=== PATIENT | male | born 1945 | race Caucasian/White ===

== ENCOUNTER 2018-09-16 21:13 | Inpatient (IN) ==
[2018-09-16] MEDS ORDERED: DILTIAZEM 50 MG/10 ML VIAL IV STA (21:47)
[2018-09-16] MEDS ORDERED: SODIUM CHLORIDE 0.9% 500 ML IV STA (21:48)
[2018-09-16] MEDS ORDERED: DILTIAZEM 25 MG/5 ML VIAL IV ONE (21:49)
[2018-09-16] MEDS ORDERED: dilTIAZem Drip 125 MG/125 ML PREMIX IV ONE (22:12)
[2018-09-16] MEDS ORDERED: dilTIAZem Drip 125 MG/125 ML PREMIX IV SCH (22:30)
[2018-09-16 22:43] LABS: Basophils % 0.3 % (0.0-0.8); Hemoglobin 10.2 GM/DL (14.0-18.0); Immature Granulocytes % 1.4 %; Immature Granulocytes Absolute 0.14 #; Lymphocytes # 0.5 10*3/uL (1.4-4.0); Lymphocytes % 5.5 % (21.2-54.2); Mean Corpuscular HGB Conc 31.9 GM/DL (32-36); Mean Corpuscular Hemoglobin 30 PG (27-34); Mean Platelet Volume 10.3 FL (9.6-12.0); Monocytes # 0.4 10*3/uL (0.11-0.8); Monocytes % 4.5 % (1.7-12.7); Neutrophils # 8.6 10*3/uL (1.4-7.4); Neutrophils % 88.3 % (38.7-73.9); Platelet Count 145 T/CUMM (130-400); Red Blood Count 3.37 MC/CUMM (3.8-5.5); Red Cell Distribution Width 15.7 % (9.3-17.3); White Blood Count 9.8 T/CUMM (4-12)
[2018-09-16 22:50] LABS: PT Patient Result 10.7 SECS
[2018-09-16 23:13] LABS: Albumin 2.4 G/DL (3.4-5.0); Bilirubin,Total 0.6 MG/DL (0.2-1.0); Calcium 7.9 MG/DL (8.5-10.1); Osmolality,Calculated 287.4 MOS/KG (273-304); Potassium 3.3 MMOL/L (3.5-5.1); Thyroid Stimulating Hormone 1.19 uIU/ml (0.358-3.74); Total Protein 5.8 G/DL (6.4-8.3)
[2018-09-16] MEDS ORDERED: AMIODARONE INJ 450 MG in DEXTROSE 5% 241 ML IV SCH (23:30)
[2018-09-17] MEDS ORDERED: ACETAMINOPHEN 325 MG TABLET PO PRN (00:10)
[2018-09-17] MEDS ORDERED: ONDANSETRON 4 MG/2 ML VIAL IV PRN (00:10)
[2018-09-17] MEDS ORDERED: diphenhydrAMINE CAP 25 MG CAPSULE PO PRN (00:10)
[2018-09-17] MEDS ORDERED: BISACODYL 5 MG TABLET PO PRN (00:10)
[2018-09-17] MEDS ORDERED: NICOTINE 21 MG/24 HR PATCH TRANSDERM PRN (00:10)
[2018-09-17] MEDS ORDERED: MORPHINE 4 MG/1 ML VIAL IV PRN (00:10)
[2018-09-17 00:30] LABS: Risk Ratio 3.82; VLDL CHOLESTEROL 22.8 MG/DL
[2018-09-17] MEDS ORDERED: MAGNESIUM SULF RIDER 2 GM in PREMIX 1 EACH IV PRN (02:26)
[2018-09-17] MEDS ORDERED: MAGNESIUM SULF RIDER 4 GM in PREMIX 1 EACH IV PRN (02:26)
[2018-09-17] MEDS: POTASSIUM CHLORIDE 20 MEQ TABLET PO PRN ×3 (02:54→06:44)
[2018-09-17 04:39] LABS: Basophils % 0.2 % (0.0-0.8); Hematocrit 28.8 VOL% (42.0-52.0); Immature Granulocytes % 1.6 %; Immature Granulocytes Absolute 0.13 #; Lymphocytes # 0.7 10*3/uL (1.4-4.0); Mean Corpuscular HGB Conc 31.3 GM/DL (32-36); Mean Corpuscular Hemoglobin 30 PG (27-34); Mean Corpuscular Volume 94.4 FL (87-102); Monocytes # 0.6 10*3/uL (0.11-0.8); Monocytes % 6.7 % (1.7-12.7); Neutrophils # 6.9 10*3/uL (1.4-7.4); Neutrophils % 83.5 % (38.7-73.9); Platelet Count 139 T/CUMM (130-400); Red Blood Count 3.05 MC/CUMM (3.8-5.5); Red Cell Distribution Width 15.6 % (9.3-17.3); White Blood Count 8.3 T/CUMM (4-12)
[2018-09-17 04:52] LABS: Bilirubin,Total 0.9 MG/DL (0.2-1.0); Calcium 8.2 MG/DL (8.5-10.1); Osmolality,Calculated 281.5 MOS/KG (273-304); Potassium 3.2 MMOL/L (3.5-5.1)
[2018-09-17 05:20] LABS: Apearance,Urine Slightly Hazy (Clear); Bilirubin,Urine Negative (Negative); Blood, Urine Small mg/dL (Negative); Glucose,Urine (UA) Negative (Negative); Granular Casts,Urine 18 /LPF (0-1); Hyaline Casts,Urine 50 /LPF (0-3); Ketones,Urine Negative (Negative); Mucus,Urine Occasional /LPF (Occasional); Nitrite,Urine Negative (Negative); Protein,Urine 100 MG/DL; RBC,Urine 4 /HPF (0-4); Squamous Epithelial Cell,Urine Occasional /HPF (0-10); Urine Color Amber (Yellow); WBC,Urine 3 /HPF (0-6)
[2018-09-17 05:54] LABS: Band Neutrophils 3 % (0-10); Lymphocytes 9 % (20-55); Metamyelocytes 1 %; Platelet Estimate Decreased; Segmented Neutrophils 80 % (50-85); Total Cells Counted 100
[2018-09-17] MEDS: DIGOXIN 0.25 MG TABLET PO SCH ×3 (09:10→13:58)
[2018-09-17] MEDS: PANTOPRAZOLE 40 MG TABLET PO SCH (09:11)
[2018-09-17] MEDS: ATORVASTATIN 10 MG TABLET PO SCH (09:11)
[2018-09-17] MEDS: CARVEDILOL 3.125 MG TABLET PO SCH (09:11)
[2018-09-17] MEDS: CETIRIZINE 10 MG TABLET PO PRN (09:15)
[2018-09-17] MEDS: DORNASE ALFA 2.5 MG/2.5 ML VIAL RESP TX SCH ×3 (11:25→19:35)
[2018-09-17] MEDS: LEVOFLOXACIN INJ 500 MG in PREMIX 1 EACH IV SCH (12:30)
[2018-09-17] MEDS ORDERED: FUROSEMIDE 40 MG/4 ML VIAL IV SCH (12:30)
[2018-09-17] MEDS: ALLOPURINOL 300 MG TABLET PO SCH (12:31)
[2018-09-17] MEDS: carBAMazepine 200 MG TABLET PO SCH (12:31)
[2018-09-17] MEDS: MONTELUKAST 10 MG TABLET PO SCH (12:31)
[2018-09-17] MEDS ORDERED: DILTIAZEM 30 MG TABLET PO SCH (13:30)
[2018-09-17] MEDS: ALBUTEROL/IPRATROPIUM 3 ML NEB RESP TX SCH ×3 (13:55→23:45)
[2018-09-17] MEDS: FLUTICASONE 50 MCG NASAL SPRAY 16 GM BOTTLE BOTH NARES SCH (13:58)
[2018-09-17] MEDS ORDERED: FUROSEMIDE 40 MG/4 ML VIAL ONE (14:13)
[2018-09-17] MEDS: CLINDAMYCIN INJ 300 MG in PREMIX 1 EACH IV SCH (15:49)
[2018-09-17] MEDS ORDERED: DILTIAZEM 50 MG/10 ML VIAL IV ONE (17:27)
[2018-09-17] MEDS: dilTIAZem Drip 125 MG/125 ML PREMIX IV SCH (18:09)
[2018-09-18] MEDS: CARVEDILOL 3.125 MG TABLET PO SCH ×3 (00:35→21:00)
[2018-09-18] MEDS: carBAMazepine 200 MG TABLET PO SCH ×3 (00:35→21:00)
[2018-09-18] MEDS: FLUTICASONE 50 MCG NASAL SPRAY 16 GM BOTTLE BOTH NARES SCH ×3 (00:35→21:01)
[2018-09-18] MEDS: APIXABAN 5 MG TABLET PO SCH ×3 (00:48→21:01)
[2018-09-18] MEDS: CLINDAMYCIN INJ 300 MG in PREMIX 1 EACH IV SCH ×4 (02:30→23:19)
[2018-09-18] MEDS: ALBUTEROL/IPRATROPIUM 3 ML NEB RESP TX SCH ×6 (02:57→23:10)
[2018-09-18 04:05] LABS: Basophils % 0.3 % (0.0-0.8); Hematocrit 26.6 VOL% (42.0-52.0); Hemoglobin 8.5 GM/DL (14.0-18.0); Immature Granulocytes Absolute 0.14 #; Lymphocytes # 0.5 10*3/uL (1.4-4.0); Lymphocytes % 7.6 % (21.2-54.2); Mean Corpuscular Hemoglobin 30 PG (27-34); Mean Corpuscular Volume 94.3 FL (87-102); Mean Platelet Volume 9.5 FL (9.6-12.0); Monocytes # 0.4 10*3/uL (0.11-0.8); Neutrophils % 84.1 % (38.7-73.9); Platelet Count 116 T/CUMM (130-400); Red Blood Count 2.82 MC/CUMM (3.8-5.5); Red Cell Distribution Width 15.6 % (9.3-17.3); White Blood Count 7.1 T/CUMM (4-12)
[2018-09-18 04:12] LABS: Calcium 8.3 MG/DL (8.5-10.1); Osmolality,Calculated 281.5 MOS/KG (273-304); Potassium 3.5 MMOL/L (3.5-5.1)
[2018-09-18 06:48] LABS: Band Neutrophils 2 % (0-10); Hypochromasia 2+; Lymphocytes 7 % (20-55); Platelet Estimate Decreased; Segmented Neutrophils 86 % (50-85); Total Cells Counted 100
[2018-09-18] MEDS: LEVOTHYROXINE 200 MCG TABLET PO SCH (07:26)
[2018-09-18] MEDS: DORNASE ALFA 2.5 MG/2.5 ML VIAL RESP TX SCH ×2 (07:35→19:28)
[2018-09-18] MEDS: MONTELUKAST 10 MG TABLET PO SCH (10:09)
[2018-09-18] MEDS: ALLOPURINOL 300 MG TABLET PO SCH (10:10)
[2018-09-18] MEDS: CETIRIZINE 10 MG TABLET PO PRN (10:10)
[2018-09-18] MEDS: ATORVASTATIN 10 MG TABLET PO SCH (10:10)
[2018-09-18] MEDS: DIGOXIN 0.25 MG TABLET PO SCH (10:10)
[2018-09-18] MEDS: PANTOPRAZOLE 40 MG TABLET PO SCH (10:11)
[2018-09-18] MEDS: LEVOFLOXACIN INJ 500 MG in PREMIX 1 EACH IV SCH (13:38)
[2018-09-19] MEDS: ALBUTEROL/IPRATROPIUM 3 ML NEB RESP TX SCH ×6 (03:20→23:48)
[2018-09-19 05:14] LABS: Basophils % 0.1 % (0.0-0.8); Hematocrit 27.1 VOL% (42.0-52.0); Hemoglobin 8.7 GM/DL (14.0-18.0); Immature Granulocytes % 1.6 %; Immature Granulocytes Absolute 0.11 #; Lymphocytes # 0.4 10*3/uL (1.4-4.0); Lymphocytes % 6.3 % (21.2-54.2); Mean Corpuscular HGB Conc 32.1 GM/DL (32-36); Mean Corpuscular Hemoglobin 30 PG (27-34); Mean Corpuscular Volume 94.4 FL (87-102); Mean Platelet Volume 9.3 FL (9.6-12.0); Monocytes # 0.4 10*3/uL (0.11-0.8); Monocytes % 6.4 % (1.7-12.7); Neutrophils # 5.7 10*3/uL (1.4-7.4); Neutrophils % 85.6 % (38.7-73.9); Platelet Count 129 T/CUMM (130-400); Red Blood Count 2.87 MC/CUMM (3.8-5.5); Red Cell Distribution Width 15.2 % (9.3-17.3); White Blood Count 6.7 T/CUMM (4-12)
[2018-09-19 05:22] LABS: Calcium 8.2 MG/DL (8.5-10.1); Osmolality,Calculated 277.7 MOS/KG (273-304); Potassium 3.8 MMOL/L (3.5-5.1)
[2018-09-19 05:58] LABS: Band Neutrophils 1 % (0-10); Hypochromasia 1+; Lymphocytes 4 % (20-55); Platelet Estimate Normal; Segmented Neutrophils 87 % (50-85); Total Cells Counted 100
[2018-09-19] MEDS: DORNASE ALFA 2.5 MG/2.5 ML VIAL RESP TX SCH ×2 (06:58→19:53)
[2018-09-19] MEDS: LEVOTHYROXINE 200 MCG TABLET PO SCH (07:23)
[2018-09-19] MEDS: POTASSIUM CHLORIDE 20 MEQ TABLET PO PRN (07:24)
[2018-09-19] MEDS: CLINDAMYCIN INJ 300 MG in PREMIX 1 EACH IV SCH ×3 (09:14→23:18)
[2018-09-19] MEDS: ALLOPURINOL 300 MG TABLET PO SCH (09:20)
[2018-09-19] MEDS: carBAMazepine 200 MG TABLET PO SCH ×2 (09:21→20:56)
[2018-09-19] MEDS: MONTELUKAST 10 MG TABLET PO SCH (09:21)
[2018-09-19] MEDS: DIGOXIN 0.25 MG TABLET PO SCH (09:21)
[2018-09-19] MEDS: FLUTICASONE 50 MCG NASAL SPRAY 16 GM BOTTLE BOTH NARES SCH ×2 (09:22→20:57)
[2018-09-19] MEDS: DRONEDARONE 400 MG TABLET PO SCH ×2 (09:22→16:36)
[2018-09-19] MEDS: CARVEDILOL 3.125 MG TABLET PO SCH ×2 (09:22→20:56)
[2018-09-19] MEDS: ATORVASTATIN 10 MG TABLET PO SCH (09:22)
[2018-09-19] MEDS: APIXABAN 5 MG TABLET PO SCH ×2 (09:22→20:57)
[2018-09-19] MEDS: LEVOFLOXACIN INJ 500 MG in PREMIX 1 EACH IV SCH (13:18)
[2018-09-19] MEDS: PANTOPRAZOLE 40 MG TABLET PO SCH (15:28)
[2018-09-19] MEDS: dilTIAZem Drip 125 MG/125 ML PREMIX IV SCH (18:54)
[2018-09-20] MEDS: ALBUTEROL/IPRATROPIUM 3 ML NEB RESP TX SCH ×6 (03:00→23:20)
[2018-09-20 05:02] LABS: Basophils % 0.4 % (0.0-0.8); Calcium 8.5 MG/DL (8.5-10.1); Hematocrit 28.6 VOL% (42.0-52.0); Immature Granulocytes % 1.3 %; Immature Granulocytes Absolute 0.06 #; Lymphocytes # 0.5 10*3/uL (1.4-4.0); Lymphocytes % 10.2 % (21.2-54.2); Mean Corpuscular HGB Conc 31.5 GM/DL (32-36); Mean Corpuscular Hemoglobin 30 PG (27-34); Mean Corpuscular Volume 94.7 FL (87-102); Mean Platelet Volume 9.5 FL (9.6-12.0); Monocytes # 0.5 10*3/uL (0.11-0.8); Monocytes % 9.7 % (1.7-12.7); Neutrophils # 3.6 10*3/uL (1.4-7.4); Neutrophils % 78.4 % (38.7-73.9); Osmolality,Calculated 277.5 MOS/KG (273-304); Platelet Count 133 T/CUMM (130-400); Potassium 4.1 MMOL/L (3.5-5.1); Red Blood Count 3.02 MC/CUMM (3.8-5.5); Red Cell Distribution Width 15.4 % (9.3-17.3); White Blood Count 4.6 T/CUMM (4-12)
[2018-09-20 05:41] LABS: Anisocytosis 1+; Band Neutrophils 2 % (0-10); Lymphocytes 9 % (20-55); Macrocytosis 1+; Platelet Estimate Decreased; Segmented Neutrophils 78 % (50-85); Total Cells Counted 100
[2018-09-20 05:42] LABS: Polychromasia 2+
[2018-09-20] MEDS: LEVOTHYROXINE 200 MCG TABLET PO SCH (05:59)
[2018-09-20] MEDS: DORNASE ALFA 2.5 MG/2.5 ML VIAL RESP TX SCH ×2 (06:57→20:15)
[2018-09-20] MEDS: DRONEDARONE 400 MG TABLET PO SCH ×2 (09:18→18:07)
[2018-09-20] MEDS: CLINDAMYCIN INJ 300 MG in PREMIX 1 EACH IV SCH ×2 (09:18→18:07)
[2018-09-20] MEDS: PANTOPRAZOLE 40 MG TABLET PO SCH (09:19)
[2018-09-20] MEDS: carBAMazepine 200 MG TABLET PO SCH ×2 (09:19→21:24)
[2018-09-20] MEDS: APIXABAN 5 MG TABLET PO SCH ×2 (09:19→21:24)
[2018-09-20] MEDS: ATORVASTATIN 10 MG TABLET PO SCH (09:19)
[2018-09-20] MEDS: ALLOPURINOL 300 MG TABLET PO SCH (09:19)
[2018-09-20] MEDS: DIGOXIN 0.25 MG TABLET PO SCH (09:20)
[2018-09-20] MEDS: MONTELUKAST 10 MG TABLET PO SCH (09:20)
[2018-09-20] MEDS: CARVEDILOL 6.25 MG TABLET PO SCH ×2 (09:20→21:24)
[2018-09-20] MEDS: LEVOFLOXACIN INJ 500 MG in PREMIX 1 EACH IV SCH (11:08)
[2018-09-20] MEDS: HYDROcodone/CHLORPHENIRAMINE ER 5 ML UDCUP PO SCH ×2 (11:09→21:24)
[2018-09-20] MEDS: FLUTICASONE 50 MCG NASAL SPRAY 16 GM BOTTLE BOTH NARES SCH ×2 (11:09→21:23)
[2018-09-21] MEDS: CLINDAMYCIN INJ 300 MG in PREMIX 1 EACH IV SCH ×3 (00:06→18:32)
[2018-09-21] MEDS: ALBUTEROL/IPRATROPIUM 3 ML NEB RESP TX SCH ×6 (02:16→23:30)
[2018-09-21 04:57] LABS: Basophils % 0.2 % (0.0-0.8); Hematocrit 27.1 VOL% (42.0-52.0); Hemoglobin 8.5 GM/DL (14.0-18.0); Immature Granulocytes % 1.2 %; Immature Granulocytes Absolute 0.05 #; Lymphocytes # 0.5 10*3/uL (1.4-4.0); Lymphocytes % 11.4 % (21.2-54.2); Mean Corpuscular HGB Conc 31.4 GM/DL (32-36); Mean Corpuscular Hemoglobin 30 PG (27-34); Mean Corpuscular Volume 95.4 FL (87-102); Mean Platelet Volume 9.3 FL (9.6-12.0); Monocytes # 0.4 10*3/uL (0.11-0.8); Monocytes % 9.5 % (1.7-12.7); Neutrophils # 3.3 10*3/uL (1.4-7.4); Neutrophils % 77.7 % (38.7-73.9); Platelet Count 152 T/CUMM (130-400); Red Blood Count 2.84 MC/CUMM (3.8-5.5); Red Cell Distribution Width 15.5 % (9.3-17.3); White Blood Count 4.2 T/CUMM (4-12)
[2018-09-21 05:10] LABS: Calcium 8.3 MG/DL (8.5-10.1)
[2018-09-21] MEDS: LEVOTHYROXINE 200 MCG TABLET PO SCH (06:23)
[2018-09-21] MEDS: DORNASE ALFA 2.5 MG/2.5 ML VIAL RESP TX SCH ×2 (07:13→18:32)
[2018-09-21] MEDS: MONTELUKAST 10 MG TABLET PO SCH (10:49)
[2018-09-21] MEDS: APIXABAN 5 MG TABLET PO SCH ×2 (10:50→20:46)
[2018-09-21] MEDS: DRONEDARONE 400 MG TABLET PO SCH ×2 (10:50→18:32)
[2018-09-21] MEDS: PANTOPRAZOLE 40 MG TABLET PO SCH (10:50)
[2018-09-21] MEDS: carBAMazepine 200 MG TABLET PO SCH ×2 (10:50→20:46)
[2018-09-21] MEDS: CARVEDILOL 6.25 MG TABLET PO SCH ×2 (10:50→20:46)
[2018-09-21] MEDS: ATORVASTATIN 10 MG TABLET PO SCH (10:51)
[2018-09-21] MEDS: HYDROcodone/CHLORPHENIRAMINE ER 5 ML UDCUP PO SCH ×2 (10:51→20:47)
[2018-09-21] MEDS: ALLOPURINOL 300 MG TABLET PO SCH (10:51)
[2018-09-21] MEDS: FLUTICASONE 50 MCG NASAL SPRAY 16 GM BOTTLE BOTH NARES SCH ×2 (10:54→20:47)
[2018-09-21] MEDS: LEVOFLOXACIN INJ 500 MG in PREMIX 1 EACH IV SCH (12:57)
[2018-09-22] MEDS: CLINDAMYCIN INJ 300 MG in PREMIX 1 EACH IV SCH ×2 (00:21→10:42)
[2018-09-22] MEDS: ALBUTEROL/IPRATROPIUM 3 ML NEB RESP TX SCH ×4 (03:30→10:40)
[2018-09-22] MEDS: LEVOTHYROXINE 200 MCG TABLET PO SCH (06:19)
[2018-09-22] MEDS: DORNASE ALFA 2.5 MG/2.5 ML VIAL RESP TX SCH (07:20)
[2018-09-22] MEDS: DIGOXIN 0.25 MG TABLET PO SCH (07:59)
[2018-09-22] MEDS: carBAMazepine 200 MG TABLET PO SCH (08:51)
[2018-09-22] MEDS: PANTOPRAZOLE 40 MG TABLET PO SCH (08:52)
[2018-09-22] MEDS: CARVEDILOL 6.25 MG TABLET PO SCH (08:52)
[2018-09-22] MEDS: APIXABAN 5 MG TABLET PO SCH (08:52)
[2018-09-22] MEDS: MONTELUKAST 10 MG TABLET PO SCH (08:52)
[2018-09-22] MEDS: HYDROcodone/CHLORPHENIRAMINE ER 5 ML UDCUP PO SCH (08:52)
[2018-09-22] MEDS: DRONEDARONE 400 MG TABLET PO SCH (08:52)
[2018-09-22] MEDS: ALLOPURINOL 300 MG TABLET PO SCH (08:52)
[2018-09-22] MEDS: ATORVASTATIN 10 MG TABLET PO SCH (08:55)
[2018-09-22] MEDS: FLUTICASONE 50 MCG NASAL SPRAY 16 GM BOTTLE BOTH NARES SCH (08:56)
[2018-09-22 11:12] VITALS: BP 137/61
== END 2018-09-22 11:12 | disposition home or self-care (01) | DRG 308 ==
LOC: N.ED 21:13 → SUATTDRO 09-17 00:08 → N.EDINP 09-17 00:08 → N.TELEN 09-17 00:36 → N.4E 09-19 15:26
PROVIDERS: ADMIT Internal Medicine; ATTEND Family Medicine

== ENCOUNTER 2019-01-29 13:11 | Inpatient (IN) ==
[2019-01-29 14:34] LABS: Basophils % 0.3 % (0.0-0.8); Eosinophils # 0.1 10*3/uL (0.0-0.87); Eosinophils % 1.7 % (0.00-10.9); Hematocrit 40.8 VOL% (42.0-52.0); Hemoglobin 12.8 GM/DL (14.0-18.0); Immature Granulocytes % 0.3 %; Immature Granulocytes Absolute 0.02 #; Lymphocytes # 0.7 10*3/uL (1.4-4.0); Lymphocytes % 9.5 % (21.2-54.2); Mean Corpuscular HGB Conc 31.4 GM/DL (32-36); Mean Corpuscular Volume 103.8 FL (87-102); Mean Platelet Volume 9.1 FL (9.6-12.0); Monocytes % 10.5 % (1.7-12.7); Neutrophils % 77.7 % (38.7-73.9); Platelet Count 130 T/CUMM (130-400); Red Blood Count 3.93 MC/CUMM (3.8-5.5); Red Cell Distribution Width 12.2 % (9.3-17.3); White Blood Count 7.5 T/CUMM (4-12)
[2019-01-29 14:51] LABS: Apearance,Urine CLEAR (Clear); Bacteria,Urine Occasional /HPF (Few); Bilirubin,Urine Negative (Negative); Blood, Urine Moderate mg/dL (Negative); Glucose,Urine (UA) Negative (Negative); Hyaline Casts,Urine 9 /LPF (0-3); Ketones,Urine Negative (Negative); Mucus,Urine Few /LPF (Occasional); Nitrite,Urine Negative (Negative); Protein,Urine 30 MG/DL; RBC,Urine 1 /HPF (0-4); Squamous Epithelial Cell,Urine Occasional /HPF (0-10); Urine Color Yellow (Yellow); Urine Specific Gravity 1.024 (1.001-1.035); Urine Urobilinogen < 2.0 EU/DL (0.2-1.0); WBC,Urine 1 /HPF (0-6)
[2019-01-29 15:02] LABS: Bilirubin,Total 0.4 MG/DL (0.2-1.0); Calcium 8.5 MG/DL (8.5-10.1); Osmolality,Calculated 284.1 MOS/KG (273-304); Total Protein 5.8 G/DL (6.4-8.3)
[2019-01-29] MEDS ORDERED: DOCUSATE SODIUM 100 MG CAPSULE PO PRN (16:17)
[2019-01-29] MEDS ORDERED: DEXTROSE 10% 250 ML BAG IV PRN (16:17)
[2019-01-29] MEDS ORDERED: traZODone 50 MG TABLET PO PRN (16:17)
[2019-01-29] MEDS ORDERED: ACETAMINOPHEN 325 MG TABLET PO PRN (16:17)
[2019-01-29] MEDS ORDERED: GLUCAGON 1 MG VIAL IM PRN (16:17)
[2019-01-29] MEDS ORDERED: diphenhydrAMINE CAP 25 MG CAPSULE PO PRN (16:17)
[2019-01-29] MEDS ORDERED: ONDANSETRON 4 MG/2 ML VIAL IV PRN (16:17)
[2019-01-29] MEDS ORDERED: BISACODYL 5 MG TABLET PO PRN (16:17)
[2019-01-29] MEDS ORDERED: LACTULOSE 20 GM/30 ML UDCUP PO PRN (16:17)
[2019-01-29] MEDS ORDERED: guaiFENesin/DM ER 600-30 MG TABLET PO PRN (16:17)
[2019-01-29] MEDS ORDERED: FLUTICASONE 50 MCG NASAL SPRAY 16 GM BOTTLE BOTH NARES PRN (18:28)
[2019-01-29] MEDS: INSULIN REGULAR 100 UNIT/ML SUBCUT SCH ×2 (18:40→21:40)
[2019-01-29] MEDS: ASPIRIN EC 81 MG TABLET PO SCH (19:12)
[2019-01-29] MEDS: DRONEDARONE 400 MG TABLET PO SCH (19:12)
[2019-01-29] MEDS: CLINDAMYCIN INJ 600 MG in PREMIX 1 EACH IV SCH (19:12)
[2019-01-29] MEDS: CARVEDILOL 3.125 MG TABLET PO SCH (19:54)
[2019-01-29] MEDS: ALBUTEROL/IPRATROPIUM 3 ML NEB RESP TX SCH (20:03)
[2019-01-29] MEDS: APIXABAN 5 MG TABLET PO SCH ×2 (20:59→21:39)
[2019-01-29] MEDS: ATORVASTATIN 10 MG TABLET PO SCH (21:39)
[2019-01-29] MEDS: MONTELUKAST 10 MG TABLET PO SCH (21:39)
[2019-01-29] MEDS: carBAMazepine 200 MG TABLET PO SCH (21:40)
[2019-01-29] MEDS: TRIAMCINOLONE 0.1% OINT 15 GM TUBE TOP SCH (21:40)
[2019-01-30] MEDS: ALBUTEROL/IPRATROPIUM 3 ML NEB RESP TX SCH ×2 (01:30→07:49)
[2019-01-30] MEDS: CLINDAMYCIN INJ 600 MG in PREMIX 1 EACH IV SCH ×3 (02:45→18:34)
[2019-01-30 06:20] LABS: Basophils % 0.3 % (0.0-0.8); Eosinophils # 0.1 10*3/uL (0.0-0.87); Eosinophils % 1.7 % (0.00-10.9); Hematocrit 37.6 VOL% (42.0-52.0); Hemoglobin 11.8 GM/DL (14.0-18.0); Immature Granulocytes % 0.4 %; Immature Granulocytes Absolute 0.03 #; Lymphocytes # 0.5 10*3/uL (1.4-4.0); Lymphocytes % 7.7 % (21.2-54.2); Mean Corpuscular HGB Conc 31.4 GM/DL (32-36); Mean Platelet Volume 9.6 FL (9.6-12.0); Monocytes % 12.3 % (1.7-12.7); Neutrophils % 77.6 % (38.7-73.9); Platelet Count 124 T/CUMM (130-400); Red Blood Count 3.58 MC/CUMM (3.8-5.5); Red Cell Distribution Width 12.3 % (9.3-17.3); White Blood Count 6.9 T/CUMM (4-12)
[2019-01-30] MEDS: LEVOTHYROXINE 200 MCG TABLET PO SCH (06:38)
[2019-01-30 06:43] LABS: Risk Ratio 3.88; VLDL CHOLESTEROL 23.2 MG/DL
[2019-01-30 06:49] LABS: Albumin 2.6 G/DL (3.4-5.0); Bilirubin,Total 0.6 MG/DL (0.2-1.0); Calcium 8.3 MG/DL (8.5-10.1); Osmolality,Calculated 285.1 MOS/KG (273-304); Thyroid Stimulating Hormone 0.743 uIU/ml (0.358-3.74); Total Protein 5.8 G/DL (6.4-8.3)
[2019-01-30] MEDS: INSULIN REGULAR 100 UNIT/ML SUBCUT SCH ×2 (07:56→11:49)
[2019-01-30] MEDS ORDERED: LEVALBUTEROL 0.31 MG/3 ML NEB RESP TX PRN (08:45)
[2019-01-30] MEDS ORDERED: IPRATROPIUM 500 MCG/2.5 ML NEB RESP TX PRN (08:46)
[2019-01-30] MEDS: CARVEDILOL 3.125 MG TABLET PO SCH (09:18)
[2019-01-30] MEDS: PANTOPRAZOLE 40 MG TABLET PO SCH (09:18)
[2019-01-30] MEDS: MAGNESIUM CHLORIDE 64 MG TABLET PO SCH (09:20)
[2019-01-30] MEDS: ASPIRIN EC 81 MG TABLET PO SCH (09:20)
[2019-01-30] MEDS: APIXABAN 5 MG TABLET PO SCH (09:20)
[2019-01-30] MEDS: ALLOPURINOL 300 MG TABLET PO SCH (09:21)
[2019-01-30] MEDS: DRONEDARONE 400 MG TABLET PO SCH ×3 (09:21→20:59)
[2019-01-30] MEDS: TRIAMCINOLONE 0.1% OINT 15 GM TUBE TOP SCH ×3 (09:23→20:58)
[2019-01-30] MEDS: carBAMazepine 200 MG TABLET PO SCH ×2 (09:23→20:59)
[2019-01-30] MEDS ORDERED: CARVEDILOL 3.125 MG TABLET PO ONE (11:19)
[2019-01-30] MEDS ORDERED: METOPROLOL TARTRATE 5 MG/5 ML VIAL IV ONE (11:19)
[2019-01-30] MEDS: FUROSEMIDE 40 MG TABLET PO SCH (13:23)
[2019-01-30] MEDS: CARVEDILOL 6.25 MG TABLET PO SCH (16:59)
[2019-01-30] MEDS: ATORVASTATIN 10 MG TABLET PO SCH (20:58)
[2019-01-30] MEDS: BUDESONIDE/FORMOTEROL 160-4.5 INHALER 6 GM INH SCH (20:58)
[2019-01-30] MEDS: MONTELUKAST 10 MG TABLET PO SCH (20:59)
[2019-01-31] MEDS: CLINDAMYCIN INJ 600 MG in PREMIX 1 EACH IV SCH ×2 (02:53→11:45)
[2019-01-31 05:33] LABS: Risk Ratio 3.15; VLDL CHOLESTEROL 25.6 MG/DL
[2019-01-31] MEDS: LEVOTHYROXINE 200 MCG TABLET PO SCH (06:20)
[2019-01-31] MEDS: APIXABAN 5 MG TABLET PO SCH ×2 (11:34→20:57)
[2019-01-31] MEDS: PANTOPRAZOLE 40 MG TABLET PO SCH (11:34)
[2019-01-31] MEDS: ASPIRIN EC 81 MG TABLET PO SCH (11:34)
[2019-01-31] MEDS: DRONEDARONE 400 MG TABLET PO SCH ×2 (11:35→20:57)
[2019-01-31] MEDS: MAGNESIUM CHLORIDE 64 MG TABLET PO SCH (11:35)
[2019-01-31] MEDS: CARVEDILOL 6.25 MG TABLET PO SCH ×2 (11:35→17:19)
[2019-01-31] MEDS: ALLOPURINOL 300 MG TABLET PO SCH (11:35)
[2019-01-31] MEDS: FUROSEMIDE 40 MG TABLET PO SCH (11:35)
[2019-01-31] MEDS: carBAMazepine 200 MG TABLET PO SCH ×2 (11:36→20:57)
[2019-01-31] MEDS: BUDESONIDE/FORMOTEROL 160-4.5 INHALER 6 GM INH SCH ×2 (11:36→20:57)
[2019-01-31] MEDS: TRIAMCINOLONE 0.1% OINT 15 GM TUBE TOP SCH ×3 (11:37→20:57)
[2019-01-31] MEDS: MONTELUKAST 10 MG TABLET PO SCH (20:57)
[2019-01-31] MEDS: ATORVASTATIN 10 MG TABLET PO SCH (20:57)
[2019-02-01 05:00] LABS: Basophils % 0.5 % (0.0-0.8); Eosinophils # 0.2 10*3/uL (0.0-0.87); Eosinophils % 3.8 % (0.00-10.9); Hematocrit 38.6 VOL% (42.0-52.0); Hemoglobin 12.1 GM/DL (14.0-18.0); Immature Granulocytes % 0.3 %; Immature Granulocytes Absolute 0.01 #; Lymphocytes # 0.6 10*3/uL (1.4-4.0); Lymphocytes % 14.6 % (21.2-54.2); Mean Corpuscular HGB Conc 31.3 GM/DL (32-36); Mean Corpuscular Volume 104.9 FL (87-102); Mean Platelet Volume 8.9 FL (9.6-12.0); Monocytes % 14.9 % (1.7-12.7); Neutrophils % 65.9 % (38.7-73.9); Platelet Count 142 T/CUMM (130-400); Red Blood Count 3.68 MC/CUMM (3.8-5.5)
[2019-02-01 05:33] LABS: Calcium 8.5 MG/DL (8.5-10.1); Osmolality,Calculated 289.8 MOS/KG (273-304)
[2019-02-01] MEDS: LEVOTHYROXINE 200 MCG TABLET PO SCH (05:51)
[2019-02-01] MEDS: ASPIRIN EC 81 MG TABLET PO SCH (09:25)
[2019-02-01] MEDS: carBAMazepine 200 MG TABLET PO SCH ×2 (09:25→20:53)
[2019-02-01] MEDS: MAGNESIUM CHLORIDE 64 MG TABLET PO SCH (09:26)
[2019-02-01] MEDS: PANTOPRAZOLE 40 MG TABLET PO SCH (09:26)
[2019-02-01] MEDS: DRONEDARONE 400 MG TABLET PO SCH ×2 (09:26→20:53)
[2019-02-01] MEDS: ALLOPURINOL 300 MG TABLET PO SCH (09:26)
[2019-02-01] MEDS: CARVEDILOL 6.25 MG TABLET PO SCH ×2 (09:27→17:20)
[2019-02-01] MEDS: APIXABAN 5 MG TABLET PO SCH ×2 (09:27→20:53)
[2019-02-01] MEDS: FUROSEMIDE 40 MG TABLET PO SCH (09:27)
[2019-02-01] MEDS: BUDESONIDE/FORMOTEROL 160-4.5 INHALER 6 GM INH SCH ×2 (09:28→20:53)
[2019-02-01] MEDS: TRIAMCINOLONE 0.1% OINT 15 GM TUBE TOP SCH ×3 (09:29→20:52)
[2019-02-01 09:49] LABS: CKMB % 8.2 %
[2019-02-01 09:50] LABS: Troponin I 0.844 NG/ML (0.00-0.045)
[2019-02-01] MEDS: MONTELUKAST 10 MG TABLET PO SCH ×2 (12:22→20:53)
[2019-02-01] MEDS: methylPREDNISolone SOD SUC 40 MG/1 ML VIAL IV SCH ×2 (12:23→19:34)
[2019-02-01] MEDS: CLINDAMYCIN INJ 300 MG in PREMIX 1 EACH IV SCH ×2 (12:27→19:34)
[2019-02-01] MEDS: DORNASE ALFA 2.5 MG/2.5 ML VIAL RESP TX SCH ×2 (13:39→20:09)
[2019-02-01 15:22] LABS: Troponin I 0.774 NG/ML (0.00-0.045)
[2019-02-01] MEDS: ATORVASTATIN 10 MG TABLET PO SCH (20:53)
[2019-02-02] MEDS: methylPREDNISolone SOD SUC 40 MG/1 ML VIAL IV SCH ×2 (03:17→11:43)
[2019-02-02] MEDS: CLINDAMYCIN INJ 300 MG in PREMIX 1 EACH IV SCH ×2 (03:17→11:43)
[2019-02-02] MEDS: LEVOTHYROXINE 200 MCG TABLET PO SCH (05:45)
[2019-02-02 08:02] VITALS: BP 116/68
[2019-02-02] MEDS: DORNASE ALFA 2.5 MG/2.5 ML VIAL RESP TX SCH (08:27)
[2019-02-02] MEDS: BUDESONIDE/FORMOTEROL 160-4.5 INHALER 6 GM INH SCH (09:17)
[2019-02-02] MEDS: DRONEDARONE 400 MG TABLET PO SCH (09:17)
[2019-02-02] MEDS: MONTELUKAST 10 MG TABLET PO SCH (09:17)
[2019-02-02] MEDS: MAGNESIUM CHLORIDE 64 MG TABLET PO SCH (09:17)
[2019-02-02] MEDS: ALLOPURINOL 300 MG TABLET PO SCH (09:18)
[2019-02-02] MEDS: ASPIRIN EC 81 MG TABLET PO SCH (09:18)
[2019-02-02] MEDS: carBAMazepine 200 MG TABLET PO SCH (09:18)
[2019-02-02] MEDS: APIXABAN 5 MG TABLET PO SCH (09:18)
[2019-02-02] MEDS: FUROSEMIDE 40 MG TABLET PO SCH (09:18)
[2019-02-02] MEDS: TRIAMCINOLONE 0.1% OINT 15 GM TUBE TOP SCH (09:18)
[2019-02-02] MEDS: PANTOPRAZOLE 40 MG TABLET PO SCH (09:19)
[2019-02-02] MEDS: CARVEDILOL 6.25 MG TABLET PO SCH (09:24)
== END 2019-02-02 13:14 | disposition home health service (06) | DRG 181 ==
LOC: N.EDINP 13:11 → N.ED 13:11 → N.EDINP 18:10 → N.3E 18:26 → SUATTDRO 01-30 11:32
PROVIDERS: ADMIT Internal Medicine; ATTEND Internal Medicine

== ENCOUNTER 2019-03-12 06:16 | Inpatient (IN) ==
[2019-03-12 07:06] LABS: Basophils % 0.8 % (0.0-0.8); Eosinophils % 0.8 % (0.00-10.9); Hematocrit 46.9 VOL% (42.0-52.0); Hemoglobin 14.9 GM/DL (14.0-18.0); Immature Granulocytes % 0.3 %; Immature Granulocytes Absolute 0.01 #; Lymphocytes # 0.8 10*3/uL (1.4-4.0); Lymphocytes % 20.9 % (21.2-54.2); Mean Corpuscular HGB Conc 31.8 GM/DL (32-36); Mean Corpuscular Volume 101.7 FL (87-102); Mean Platelet Volume 9.4 FL (9.6-12.0); Monocytes % 11.8 % (1.7-12.7); Neutrophils % 65.4 % (38.7-73.9); Platelet Count 139 T/CUMM (130-400); Red Blood Count 4.61 MC/CUMM (3.8-5.5); Red Cell Distribution Width 13.2 % (9.3-17.3); White Blood Count 3.6 T/CUMM (4-12)
[2019-03-12 07:15] LABS: PT Patient Result 11.2 SECS; Partial Thromboplastin Time 31.3 SECS (0-40)
[2019-03-12 07:36] LABS: Albumin 3.3 G/DL (3.4-5.0); Bilirubin,Total 0.4 MG/DL (0.2-1.0); Osmolality,Calculated 282.1 MOS/KG (273-304); Thyroid Stimulating Hormone 2.15 uIU/ml (0.358-3.74); Total Protein 6.7 G/DL (6.4-8.3)
[2019-03-12 08:08] LABS: Apearance,Urine CLEAR (Clear); Bilirubin,Urine Negative (Negative); Blood, Urine Moderate mg/dL (Negative); Glucose,Urine (UA) Negative (Negative); Hyaline Casts,Urine 9 /LPF (0-3); Ketones,Urine 5 mg/dL (Negative); Mucus,Urine Moderate /LPF (Occasional); Nitrite,Urine Negative (Negative); Protein,Urine 30 MG/DL; RBC,Urine <1 /HPF (0-4); Squamous Epithelial Cell,Urine Occasional /HPF (0-10); Urine Color Yellow (Yellow); Urine Specific Gravity 1.021 (1.001-1.035); Urine Urobilinogen < 2.0 EU/DL (0.2-1.0); WBC,Urine <1 /HPF (0-6)
[2019-03-12] MEDS ORDERED: ONDANSETRON 4 MG/2 ML VIAL IV PRN (11:42)
[2019-03-12] MEDS ORDERED: ACETAMINOPHEN 325 MG TABLET PO PRN (11:42)
[2019-03-12] MEDS ORDERED: DOCUSATE SODIUM 100 MG CAPSULE PO PRN (11:42)
[2019-03-12] MEDS ORDERED: ENOXAPARIN 40 MG/0.4 ML SYRINGE SUBCUT SCH (12:00)
[2019-03-12] MEDS ORDERED: FLUTICASONE 50 MCG NASAL SPRAY 16 GM BOTTLE BOTH NARES PRN (15:00)
[2019-03-12] MEDS: methylPREDNISolone SOD SUC 40 MG/1 ML VIAL IV SCH (18:46)
[2019-03-12] MEDS: CARVEDILOL 3.125 MG TABLET PO SCH (18:46)
[2019-03-12] MEDS: DRONEDARONE 400 MG TABLET PO SCH (18:46)
[2019-03-12] MEDS: LORazepam 0.5 MG TABLET PO PRN (18:50)
[2019-03-12] MEDS ORDERED: ALBUTEROL 0.63 MG/3 ML NEB RESP TX PRN (19:00)
[2019-03-12] MEDS: LEVALBUTEROL 0.63 MG/3 ML NEB RESP TX SCH (20:20)
[2019-03-12] MEDS: BUDESONIDE/FORMOTEROL 160-4.5 INHALER 6 GM INH SCH (22:05)
[2019-03-12] MEDS: MONTELUKAST 10 MG TABLET PO SCH (22:05)
[2019-03-12] MEDS: APIXABAN 5 MG TABLET PO SCH (22:06)
[2019-03-12] MEDS: carBAMazepine 200 MG TABLET PO SCH (22:06)
[2019-03-13] MEDS: LEVALBUTEROL 0.63 MG/3 ML NEB RESP TX SCH ×7 (00:11→23:53)
[2019-03-13 05:00] LABS: Basophils % 0.3 % (0.0-0.8); Hematocrit 44.2 VOL% (42.0-52.0); Hemoglobin 14.4 GM/DL (14.0-18.0); Immature Granulocytes % 0.3 %; Immature Granulocytes Absolute 0.01 #; Lymphocytes # 0.6 10*3/uL (1.4-4.0); Lymphocytes % 18.1 % (21.2-54.2); Mean Corpuscular HGB Conc 32.6 GM/DL (32-36); Mean Corpuscular Volume 100.2 FL (87-102); Mean Platelet Volume 9.6 FL (9.6-12.0); Monocytes % 4.1 % (1.7-12.7); Neutrophils % 77.2 % (38.7-73.9); Platelet Count 132 T/CUMM (130-400); Red Blood Count 4.41 MC/CUMM (3.8-5.5); Red Cell Distribution Width 12.8 % (9.3-17.3); White Blood Count 3.4 T/CUMM (4-12)
[2019-03-13 05:20] LABS: Calcium 8.7 MG/DL (8.5-10.1); Osmolality,Calculated 277.5 MOS/KG (273-304)
[2019-03-13] MEDS: methylPREDNISolone SOD SUC 40 MG/1 ML VIAL IV SCH ×2 (06:24→16:51)
[2019-03-13] MEDS: LEVOTHYROXINE 200 MCG TABLET PO SCH (06:24)
[2019-03-13] MEDS: carBAMazepine 200 MG TABLET PO SCH ×2 (09:04→21:16)
[2019-03-13] MEDS: ALLOPURINOL 300 MG TABLET PO SCH (09:04)
[2019-03-13] MEDS: CITALOPRAM 20 MG TABLET PO SCH (09:04)
[2019-03-13] MEDS: MAGNESIUM CHLORIDE 64 MG TABLET PO SCH (09:04)
[2019-03-13] MEDS: DRONEDARONE 400 MG TABLET PO SCH ×2 (09:05→16:50)
[2019-03-13] MEDS: CARVEDILOL 3.125 MG TABLET PO SCH ×2 (09:05→16:50)
[2019-03-13] MEDS: PANTOPRAZOLE 40 MG TABLET PO SCH ×2 (09:05→10:13)
[2019-03-13] MEDS: ATORVASTATIN 10 MG TABLET PO SCH (09:05)
[2019-03-13] MEDS: MONTELUKAST 10 MG TABLET PO SCH ×2 (09:05→21:16)
[2019-03-13] MEDS: APIXABAN 5 MG TABLET PO SCH ×2 (09:06→21:16)
[2019-03-13] MEDS: BUDESONIDE/FORMOTEROL 160-4.5 INHALER 6 GM INH SCH ×2 (09:14→21:18)
[2019-03-13] MEDS: LORazepam 0.5 MG TABLET PO PRN (16:50)
[2019-03-14] MEDS: LEVALBUTEROL 0.63 MG/3 ML NEB RESP TX SCH ×4 (04:09→14:27)
[2019-03-14] MEDS: methylPREDNISolone SOD SUC 40 MG/1 ML VIAL IV SCH (05:45)
[2019-03-14] MEDS: LEVOTHYROXINE 200 MCG TABLET PO SCH (05:46)
[2019-03-14] MEDS: ATORVASTATIN 10 MG TABLET PO SCH (08:44)
[2019-03-14] MEDS: MONTELUKAST 10 MG TABLET PO SCH (08:44)
[2019-03-14] MEDS: APIXABAN 5 MG TABLET PO SCH (08:44)
[2019-03-14] MEDS: CITALOPRAM 20 MG TABLET PO SCH (08:44)
[2019-03-14] MEDS: ALLOPURINOL 300 MG TABLET PO SCH (08:44)
[2019-03-14] MEDS: MAGNESIUM CHLORIDE 64 MG TABLET PO SCH (08:44)
[2019-03-14] MEDS: DRONEDARONE 400 MG TABLET PO SCH (08:44)
[2019-03-14] MEDS: PANTOPRAZOLE 40 MG TABLET PO SCH ×2 (08:44→08:45)
[2019-03-14] MEDS: carBAMazepine 200 MG TABLET PO SCH (08:44)
[2019-03-14] MEDS: CARVEDILOL 3.125 MG TABLET PO SCH (08:44)
[2019-03-14] MEDS: BUDESONIDE/FORMOTEROL 160-4.5 INHALER 6 GM INH SCH (08:48)
[2019-03-14] MEDS ORDERED: CARVEDILOL 6.25 MG TABLET PO SCH (10:51)
[2019-03-14 11:27] VITALS: BP 126/60
== END 2019-03-14 15:09 | disposition home or self-care (01) | DRG 181 ==
LOC: N.ED 06:16 → N.EDINP 12:07 → SUATTDRO 12:07 → N.EDINP 13:21 → N.TELEN 13:31
PROVIDERS: ADMIT Internal Medicine; ATTEND Internal Medicine Geriatric Medicine